=== PATIENT | female | born 1970 | race Caucasian/White ===

== ENCOUNTER 2016-10-06 06:40 | Day surgery (SDC) | payer BC ==
[2016-10-05 15:56] LABS: CHLORIDE,CL 110 mmol/L (98-110); SODIUM,NA 143 mmol/L (136-146)
[~2016-10-06 06:40] MED LIST: Lactated Ringers 1,000 ML IV SCH; Sodium Chloride 0.9% 10 ML Syringe FLUSH PRN; Sodium Chloride 0.9% 2.5 ML Syringe FLUSH PRN; cefOXitin 2 GM in Premix Bag 1 BAG IV ONE
[2016-10-06] MEDS ORDERED: fentaNYL 100 MCG/2 ML SDV ONE ×2 (07:26→08:43)
[2016-10-06] MEDS ORDERED: Midazolam 1 MG/ML 2 ML SDV ONE (07:26)
[2016-10-06] MEDS ORDERED: Propofol 200 MG/20 ML SDV ONE (07:26)
[2016-10-06] MEDS ORDERED: Rocuronium 10 MG/ML 10 ML Syringe ONE (07:26)
[2016-10-06] MEDS ORDERED: Lidocaine 2% 5 ML SDV ONE (07:26)
[2016-10-06] MEDS ORDERED: Octyl 2-Cyanoacrylate 1 Tube ONE (07:32)
[2016-10-06] MEDS ORDERED: Fluorescein 5 ML Vial ONE (07:37)
--- NOTE | 2016-10-06 07:43 | PCM.PREANE ---
Preanesthetic Assessment - Anesthesia/Transfusion/Family Hx Anesthesia History: Prior Anesthesia Without Reaction Family History of Anesthesia Reaction: No Transfusion History: No Prior Transfusion(s) - Review of Systems General: No Symptoms Pulmonary: No Symptoms Cardiovascular: No Symptoms Gastrointestinal: No symptoms Neurological: No Symptoms Other: Reports: None - Physical Assessment NPO Status Date: 10/05/16 O2 Sat by Pulse Oximetry: 99 Respiratory Rate: 16 Vital Signs: Last Vital Signs Temp 36.3 C 10/06/16 06:49 Pulse 65 10/06/16 06:49 Resp 16 10/06/16 06:49 BP 112/55 L 10/06/16 06:49 Pulse Ox 99 10/06/16 06:49 Height: 1.65 m Weight: 52.163 kg ASA Class: 2 Mental Status: Alert & Oriented x3 Airway Class: Mallampati = 2 Dentition: Reports: Normal Dentition ROM/Head Extension: Full Lungs: Clear to auscultation Cardiovascular: Regular Rate - Lab Values: Laboratory Last Values WBC 7.29 K/uL (4.0-11.0) 10/05/16 15: RBC 4.20 M/uL (4.30-5.90) L 10/05/16 15: Hgb 13.3 g/dL (12.0-16.0) 10/05/16 15: Hct 39.5 % (36.0-46.0) 10/05/16 15:29 MCV 94.0 fL (80.0-98.0) 10/05/16 15: MCH 31.7 pg (27.0-32.0) 10/05/16 15: MCHC 33.7 g/dL (31.0-37.0) 10/05/16 15:29 RDW Std Deviation 46.1 fl (28.0-62.0) 10/05/16 15: RDW Coeff of Dominic 13 % (11.0-15.0) 10/05/16 15: Plt Count 172 K/uL (150-400) 10/05/16 15:29 MPV 11.40 fL (7.40-12.00) 10/05/16 15:29 Nucleated RBC % 0.0 /100WBC 10/05/16 15:29 Nucleated RBCs # 0 K/uL 10/05/16 15:29 Sodium 143 mmol/L (136-146) 10/05/16 15:29 Potassium 4.1 mmol/L (3.5-5.1) 10/05/16 15:29 Chloride 110 mmol/L (98-110) 10/05/16 15:29 Carbon Dioxide 26 mmol/L (21-31) 10/05/16 15:29 BUN 19 mg/dL (6.0-23.0) 10/05/16 15:29 Creatinine 0.8 mg/dL (0.6-1.5) 10/05/16 15:29 Est Cr Clr Drug Dosing 72.36 mL/min 10/05/16 15:29 Estimated GFR (MDRD) > 60.0 ml/min 10/05/16 15:29 Glucose 95 mg/dL (60-110) 10/05/16 15: Calcium 8.7 mg/dL (8.8-10.8) L 10/05/16 15:29 HCG, Qual NEGATIVE (NEG) 10/05/16 15: Blood Type A POSITIVE 10/05/16 15:29 Antibody Screen NEGATIVE 10/05/16 15:29 - Allergies Allergies/Adverse Reactions: Allergies Allergy/AdvReac Type Severity Reaction Status Date / Time animal dander Allergy watery Verified 10/04/16 09:22 eyes/itching oxycodone Allergy Nausea Verified 10/04/16 09:22 - Anesthesia Plan Pre-Op Medication Ordered: None - Acknowledgements Anesthesia Type Planned: General Anesthesia Pt an Appropriate Candidate for the Planned Anesthesia: Yes Alternatives and Risks of Anesthesia Discussed w Pt/Guardian: Yes Pt/Guardian Understands and Agrees with Anesthesia Plan: Yes Additional Comments: HCG negative PreAnesthesia Questionnaire HEENT History: Reports: Allergic rhinitis, Other (see below) Other HEENT History: wears glasses Genitourinary History: Reports: None [employer] History: Reports: Spontaneous Psychiatric History: Reports: Anxiety - Past Surgical History Head Surgeries/Procedures: Reports: None HEENT Surgical History: Reports: Tonsillectomy Female Surgical History: Reports: Tubal ligation Musculoskeletal Surgical History: Reports: Other (see below) Other Musculoskeletal Surgeries/Procedures:: foot surgery to remove spur from big toe and to correct her flat feet - SUBSTANCE USE Smoking Status *Q: Former Smoker Recreational Drug Use History: No - HOME MEDS Home Medications: Home Meds Cetirizine [ZyrTEC] 10 mg PO ASDIRECTED PRN 10/04/16 [History] Cyclobenzaprine HCl 10 mg PO ASDIRECTED PRN 10/04/16 [History] diphenhydrAMINE [Benadryl] 25 mg PO BEDTIME PRN 10/04/16 [History] - CURRENT (IN HOUSE) MEDS Current Meds: Current Medications Lactated Ringer's (Ringers, Lactated) 1,000 mls @ 125 mls/hr IV ASDIRECTED NOÉ Last Admin: 10/06/16 06:52 Dose: 125 mls/hr Sodium Chloride (Saline Flush) 10 ml FLUSH ASDIRECTED PRN PRN Reason: Keep Vein Open Sodium Chloride (Saline Flush) 2.5 ml FLUSH ASDIRECTED PRN PRN Reason: Keep Vein Open Discontinued Medications Fentanyl (Sublimaze) Confirm Administered Dose 100 mcg .ROUTE .STK-MED ONE Stop: 10/06/16 07:27 Cefoxitin Sodium 2 gm/ Premix 50 mls @ 100 mls/hr IV ONETIME ONE Stop: 10/05/16 10:33 Lidocaine (Xylocaine-Mpf 2%) Confirm Administered Dose 5 ml .ROUTE .STK-MED ONE Stop: 10/06/16 07:27 Midazolam HCl (Versed 1 Mg/Ml) Confirm Administered Dose 2 mg .ROUTE .STK-MED ONE Stop: 10/06/16 07:27 Octyl Cyanoacrylate (Dermabond Advance) Confirm Administered Dose 1 applic .ROUTE .STK-MED ONE Stop: 10/06/16 07:33 Propofol (Diprivan 20 Ml) Confirm Administered Dose 200 mg .ROUTE .STK-MED ONE Stop: 10/06/16 07:27 Rocuronium [place] (Zemuron) Confirm Administered Dose 100 mg .ROUTE .STK-MED ONE Stop: 10/06/16 07:27 Preanesthetic Assessment - ANESTHESIA/TRANSFUSION/FAMILY HX Family History of Anesthesia Reaction: No - PHYSICAL ASSESSMENT O2 Sat by Pulse Oximetry: 99 RR: 16 Vital Signs: Last Vital Signs Temp 36.3 C 10/06/16 06:49 Pulse 65 10/06/16 06:49 Resp 16 10/06/16 06:49 BP 112/55 L 10/06/16 06:49 Pulse Ox 99 10/06/16 06:49 Height: 1.65 m Weight: 52.163 kg - LAB Values: Laboratory Last Values WBC 7.29 K/uL (4.0-11.0) 10/05/16 15: RBC 4.20 M/uL (4.30-5.90) L 10/05/16 15: Hgb 13.3 g/dL (12.0-16.0) 10/05/16 15: Hct 39.5 % (36.0-46.0) 10/05/16 15: MCV 94.0 fL (80.0-98.0) 10/05/16: MCH 31.7 pg (27.0-32.0) 10/05/16: MCHC 33.7 g/dL (31.0-37.0) 10/05/16: RDW Std Deviation 46.1 fl (28.0-62.0) 10/05/16: RDW Coeff of Dominic 13 % (11.0-15.0) 10/05/16 15: Plt Count 172 K/uL (150-400) 10/05/16 15: MPV 11.40 fL (7.40-12.00) 10/05/16 15: Nucleated RBC % 0.0 /100WBC 10/05/16 15: Nucleated RBCs # 0 K/uL 10/05/16 15: Sodium 143 mmol/L (136-146) 10/05/16 15: Potassium 4.1 mmol/L (3.5-5.1) 10/05/16 15: Chloride 110 mmol/L (98-110) 10/05/16 15: Carbon Dioxide 26 mmol/L (21-31) 10/05/16 15: BUN 19 mg/dL (6.0-23.0) 10/05/16 15: Creatinine 0.8 mg/dL (0.6-1.5) 10/05/16 15: Est Cr Clr Drug Dosing 72.36 mL/min 10/05/16 15:29 Estimated GFR (MDRD) > 60.0 ml/min 10/05/16 15: Glucose 95 mg/dL (60-110) 10/05/16 15:29 Calcium 8.7 mg/dL (8.8-10.8) L 10/05/16 15:29 HCG, Qual NEGATIVE (NEG) 10/05/16 15:29 Blood Type A POSITIVE 10/05/16 15:29 Antibody Screen NEGATIVE 10/05/16 15:29 - ALLERGIES Allergies/Adverse Reactions: Allergies Allergy/AdvReac Type Severity Reaction Status Date / Time animal dander Allergy watery Verified 10/04/16 09:22 eyes/itching oxycodone Allergy Nausea Verified 10/04/16 09:22
[2016-10-06] MEDS ORDERED: HYDROmorphone 2 MG/ML Syringe ONE (08:23)
[2016-10-06] MEDS ORDERED: fentaNYL 100 MCG/2 ML SDV IVPUSH PRN (08:38)
[2016-10-06] MEDS ORDERED: Belladonna Alkaloids/Opium 16.2-30 MG Supp RECTAL PRN (08:40)
[2016-10-06] MEDS ORDERED: Neostigmine Methylsulfate 1 MG/ML 5 ML Syringe ONE (08:45)
[2016-10-06] MEDS ORDERED: Ketorolac 30 MG/ML SDV ONE (08:45)
[2016-10-06] MEDS ORDERED: Ondansetron 4 MG/2 ML SDV ONE (08:45)
[2016-10-06] MEDS ORDERED: Furosemide 40 MG/4 ML VIAL ONE (09:01)
[2016-10-06] MEDS ORDERED: Morphine 2 MG/ML Syringe IVPUSH PRN (09:15)
[2016-10-06] MEDS ORDERED: Ketorolac 30 MG/ML SDV IVPUSH ONE (09:15)
[2016-10-06] MEDS ORDERED: Ondansetron 4 MG/2 ML SDV IVPUSH PRN (09:15)
[2016-10-06] MEDS ORDERED: Acetaminophen/oxyCODONE 325-5 MG Tab PO PRN (09:15)
--- NOTE | 2016-10-06 09:23 | PCM.OPNOTE ---
- General Post-Op/Procedure Note Date of Surgery/Procedure: 10/06/16 Operative Procedure(s): TLH BS Cystoscopy Post-Op Diagnosis: Same Anesthesia Technique: General ET tube Primary Surgeon: [employer] Tutor: Puja Edwards Complications: None Condition: Good
[2016-10-06] MEDS ORDERED: Meperidine PF 25 MG/ML Syringe IVPUSH ONE (10:18)
--- NOTE | 2016-10-06 10:22 | PCM.POSTAN ---
POST ANESTHESIA ASSESSMENT - MENTAL STATUS Mental Status: alert, oriented - RESPIRATORY Respiratory Status: respiratory rate WNL, airway patent - CARDIOVASCULAR CV Status: pulse rate WNL, blood pressure stable - GASTROINTESTINAL GI Status: no symptoms - POST OP HYDRATION Hydration Status: adequate & stable
[2016-10-06] MEDS ORDERED: Meperidine PF 50 MG/ML Syringe ONE (10:24)
[2016-10-06] MEDS ORDERED: Meperidine PF 50 MG/ML Syringe IVPUSH ONE (10:30)
[2016-10-06] MEDS ORDERED: Promethazine 25 MG/ML SDV IM ONE (15:12)
[2016-10-06] MEDS ORDERED: Scopolamine 1.5 MG Transdermal Patch TOP ONE (15:16)
[2016-10-06] MEDS: Ketorolac 30 MG/ML SDV IVPUSH PRN (15:17)
--- NOTE | 2016-10-06 15:58 | PCM48HPAN ---
Post Anesthesia Note - EVALUATION WITHIN 48HRS OF ANESTHETIC Vital Signs in Normal Range: Yes Patient Participated in Evaluation: Yes Respiratory Function Stable: Yes Airway Patent: Yes Cardiovascular Function Stable: Yes Hydration Status Stable: Yes Pain Control Satisfactory: Yes Nausea and Vomiting Control Satisfactory: No (scop patch and phenergan ordered) Mental Status Recovered: Yes
[2016-10-07] MEDS: Ketorolac 30 MG/ML SDV IVPUSH PRN ×2 (00:25→07:51)
[2016-10-07 05:34] LABS: CHLORIDE,CL 112 mmol/L (98-110); SODIUM,NA 140 mmol/L (136-146)
[2016-10-07 08:17] VITALS: BP 121/63
--- NOTE | 2016-10-07 09:08 | PCM.SURGPN ---
- General Info Date of Service: 10/07/16 POD#: 1 Functional Status: Reports: pain controlled - Review of Systems General: Reports: No Symptoms HEENT: Reports: no symptoms Pulmonary: Reports: no symptoms Cardiovascular: Reports: No Symptoms Gastrointestinal: Reports: No symptoms Genitourinary: Reports: no symptoms Musculoskeletal: Reports: no symptoms Skin: Reports: no symptoms Neurological: Reports: No Symptoms Psychiatric: Reports: no symptoms - Patient Data Vitals - most recent: Last Vital Signs Temp 37.0 C 10/07/16 07:20 Pulse 84 10/07/16 07:20 Resp 16 10/07/16 07:20 BP 121/63 10/07/16 07:20 Pulse Ox 95 10/07/16 04:00 Weight - most recent: 52.163 kg I&O - last 24 hours: Intake & Output 10/06/16 10/07/16 10/07/16 22:59 06:59 14:59 Output Total 300 Balance -300 Lab Results last 24 hrs: Laboratory Results - last 24 hr 10/07/16 10/07/16 Range/Units 05:06 05:06 WBC 10.14 (4.0-11.0) K/uL RBC 3.72 L (4.30-5.90) M/uL Hgb 11.7 L (12.0-16.0) g/dL Hct 35.0 L (36.0-46.0) % MCV 94.1 (80.0-98.0) fL MCH 31.5 (27.0-32.0) pg MCHC 33.4 (31.0-37.0) g/dL RDW Std Deviation 46.2 (28.0-62.0) fl RDW Coeff of Dominic 13 (11.0-15.0) % Plt Count 146 L (150-400) K/uL MPV 11.40 (7.40-12.00) fL Neut % (Auto) 63.0 (48.0-80.0) % Lymph % (Auto) 26.1 (16.0-40.0) % [place] % (Auto) 10.0 (0.0-15.0) % Eos % (Auto) 0.8 (0.0-7.0) % Baso % (Auto) 0.1 (0.0-1.5) % Neut # (Auto) 6.4 H (1.4-5.7) K/uL Lymph # (Auto) 2.7 H (0.6-2.4) K/uL [place] # (Auto) 1.0 H (0.0-0.8) K/uL Eos # (Auto) 0.1 (0.0-0.7) K/uL Baso # (Auto) 0.0 (0.0-0.1) K/uL Nucleated RBC % 0.0 /100WBC Nucleated RBCs # 0 K/uL Sodium 140 (136-146) mmol/L Potassium 3.9 (3.5-5.1) mmol/L Chloride 112 H (98-110) mmol/L Carbon Dioxide 22 (21-31) mmol/L BUN 11 (6.0-23.0) mg/dL Creatinine 0.6 (0.6-1.5) mg/dL Est Cr Clr Drug Dosing 96.48 mL/min Estimated GFR (MDRD) > 60.0 ml/min Glucose 92 (60-110) mg/dL Calcium 8.3 L (8.8-10.8) mg/dL Med Orders - Current: Current Medications Lactated Ringer's (Ringers, Lactated) 1,000 mls @ 125 mls/hr IV ASDIRECTED [facility] Last Admin: 10/06/16 06:52 Dose: 125 mls/hr Ketorolac Tromethamine (Toradol) 30 mg IVPUSH Q6H PRN PRN Reason: Pain (severe 7-10) Stop: 10/11/16 09:15 Last Admin: 10/07/16 07:51 Dose: 30 mg Morphine Sulfate (Morphine) 2 mg IVPUSH Q2H PRN PRN Reason: Pain (severe 7-10) Ondansetron HCl (Zofran) 4 mg IVPUSH Q6H PRN PRN Reason: Nausea/Vomiting Last Admin: 10/06/16 11:43 Dose: 4 mg Oxycodone/Acetaminophen (Percocet 325-5 Mg) 2 tab PO Q4H PRN PRN Reason: Pain (moderate 4-6) Sodium Chloride (Saline Flush) 10 ml FLUSH ASDIRECTED PRN PRN Reason: Keep Vein Open Sodium Chloride (Saline Flush) 2.5 ml FLUSH ASDIRECTED PRN PRN Reason: Keep Vein Open Discontinued Medications Belladonna Alkaloids/Opium (B & O Supprettes No. 15a) 1 supp RECTAL .ONCE PRN PRN Reason: Pain Stop: 10/06/16 11:00 Fentanyl (Sublimaze) Confirm Administered Dose 100 mcg .ROUTE .STK-MED ONE Stop: 10/06/16 07:27 Fentanyl (Sublimaze) 50 - 100 mcg IVPUSH Q5M PRN PRN Reason: Pain Stop: 10/06/16 11:00 Fentanyl (Sublimaze) Confirm Administered Dose 100 mcg .ROUTE .STK-MED ONE Stop: 10/06/16 08:44 Fluorescein Sodium (Ak-Fluor) Confirm Administered Dose 5 ml .ROUTE .STK-MED ONE Stop: 10/06/16 07:38 Furosemide (Lasix) Confirm Administered Dose 40 mg .ROUTE .STK-MED ONE Stop: 10/06/16 09:02 Glycopyrrolate () Confirm Administered Dose 1 mg .ROUTE .STK-MED ONE Stop: 10/06/16 08:46 Hydromorphone HCl (Dilaudid) Confirm Administered Dose 2 mg .ROUTE .STK-MED ONE Stop: 10/06/16 08:24 Cefoxitin Sodium 2 gm/ Premix 50 mls @ 100 mls/hr IV ONETIME ONE Stop: 10/05/16 10:33 Ketorolac Tromethamine (Toradol) Confirm Administered Dose 30 mg .ROUTE .STK- MED ONE Stop: 10/06/16 08:46 Ketorolac Tromethamine (Toradol) 30 mg IVPUSH ONETIME ONE Stop: 10/06/16 09:16 Lidocaine (Xylocaine-Mpf 2%) Confirm Administered Dose 5 ml .ROUTE .STK-MED ONE Stop: 10/06/16 07:27 Meperidine HCl (Demerol) 12.5 mg IVPUSH ONETIME ONE Stop: 10/06/16 10:19 Last Admin: 10/06/16 10:25 Dose: 12.5 mg Meperidine HCl (Demerol) 12.5 mg IVPUSH ONETIME ONE Stop: 10/06/16 10:31 Meperidine HCl (Demerol) Confirm Administered Dose 50 mg .ROUTE .STK-MED ONE Stop: 10/06/16 10:25 Midazolam HCl (Versed 1 Mg/Ml) Confirm Administered Dose 2 mg .ROUTE .STK-MED ONE Stop: 10/06/16 07:27 Neostigmine Methylsulfate (Neostigmine) Confirm Administered Dose 5 mg .ROUTE .STK-MED ONE Stop: 10/06/16 08:46 Octyl Cyanoacrylate (Dermabond Advance) Confirm Administered Dose 1 applic .ROUTE .STK-MED ONE Stop: 10/06/16 07:33 Ondansetron HCl (Zofran) Confirm Administered Dose 4 mg .ROUTE .STK-MED ONE Stop: 10/06/16 08:46 Promethazine HCl (Phenergan) 25 mg IM ONETIME ONE Stop: 10/06/16 15:13 Propofol (Diprivan 20 Ml) Confirm Administered Dose 200 mg .ROUTE .STK-MED ONE Stop: 10/06/16 07:27 Rocuronium [place] (Zemuron) Confirm Administered Dose 100 mg .ROUTE .STK-MED ONE Stop: 10/06/16 07:27 Scopolamine (Transderm-Scop) 1.5 mg TOP ONETIME ONE Stop: 10/06/16 15:17 Last Admin: 10/06/16 15:24 Dose: 1.5 mg - Exam Wound/Incisions: healing well General: alert, oriented HEENT: Pupils equal Neck: supple Lungs: Clear to auscultation, Normal respiratory effort Cardiovascular: Regular Rate, Regular Rhythm Abdomen: bowel sounds present, soft, no tenderness, no distension Extremities: no edema Skin: warm, dry, intact Neurological: no new focal deficit Psy/Mental Status: alert, normal affect, normal mood - Problem List Review Problem List Initiated/Reviewed/Updated: Yes - My Orders Last 24 Hours: Active Orders 24 hr Category Date Time Status Patient Status [ADT] Routine ADT 10/06/16 09:15 Active Notify Provider Vital Signs [RC] ASDIRECTED Care 10/06/16 09:15 Active RT Incentive Spirometry [RC] Q2HWA Care 10/06/16 09:15 Active Up ad Cindy [RC] PER UNIT ROUTINE Care 10/06/16 09:15 Active Vital Signs [RC] PER UNIT ROUTINE Care 10/06/16 08:38 Active Regular Diet [DIET] Diet 10/06/16 Lunch Active Acetaminophen/oxyCODONE [Percocet 325-5 MG] Med 10/06/16 09:15 Active 2 tab PO Q4H PRN Ketorolac [Toradol] Med 10/06/16 09:15 Active 30 mg IVPUSH Q6H PRN Morphine Med 10/06/16 09:15 Active 2 mg IVPUSH Q2H PRN Ondansetron [Zofran] Med 10/06/16 09:15 Active 4 mg IVPUSH Q6H PRN Peripheral IV Discontinue [OM.PC] Routine Oth 10/06/16 09:15 Ordered Sequential Compression Device [OM.PC] Per Unit Routine Oth 10/06/16 09:15 Ordered Resuscitation Status Routine Resus Stat 10/06/16 09:15 Ordered Medication Orders Lactated Ringer's (Ringers, Lactated) 1,000 mls @ 125 mls/hr IV ASDIRECTED NOÉ Last Admin: 10/06/16 06:52 Dose: 125 mls/hr Ketorolac Tromethamine (Toradol) 30 mg IVPUSH Q6H PRN PRN Reason: Pain (severe 7-10) Stop: 10/11/16 09:15 Last Admin: 10/07/16 07:51 Dose: 30 mg Admin: 10/07/16 00:25 Dose: 30 mg Admin: 10/06/16 15:17 Dose: 30 mg Morphine Sulfate (Morphine) 2 mg IVPUSH Q2H PRN PRN Reason: Pain (severe 7-10) Ondansetron HCl (Zofran) 4 mg IVPUSH Q6H PRN PRN Reason: Nausea/Vomiting Last Admin: 10/06/16 11:43 Dose: 4 mg Oxycodone/Acetaminophen (Percocet 325-5 Mg) 2 tab PO Q4H PRN PRN Reason: Pain (moderate 4-6) Sodium Chloride (Saline Flush) 10 ml FLUSH ASDIRECTED PRN PRN Reason: Keep Vein Open Sodium Chloride (Saline Flush) 2.5 ml FLUSH ASDIRECTED PRN PRN Reason: Keep Vein Open - Assessment Assessment (Free Text/Narrative):: Status post laparoscopic hysterectomy postoperative day #1 patient is doing well no vaginal bleeding she is on regular diet tolerated very well - Plan Plan (Free Text/Narrative):: Post hysterectomy instruction is given to the patient prescription for Motrin 800 mg by mouth every 4 hours and when necessary for the pain the patient have a followup appointment in one week
--- NOTE | 2016-10-10 07:56 | OR ---
SURGEON: Jordan Victoria MD DATE OF PROCEDURE: 10/06/16 PREOPERATIVE DIAGNOSES: Menometrorrhagia and pelvic pain. POSTOPERATIVE DIAGNOSES: Menometrorrhagia and pelvic pain. OPERATION PERFORMED: Total examination under anesthesia, total laparoscopic hysterectomy, laparoscopic bilateral salpingectomy, preserving both ovaries. ELECTRONIC WARFARE OPERATOR: CHAITANYA Corrigan ANESTHESIA: General endotracheal intubation, Lurdes Thomas. ESTIMATED BLOOD LOSS: Less than 50 mL. COMPLICATION: Finding uterus about 11 to 12-week size. Both ovaries are essentially normal. INDICATION: [place] refer to the admit note. PROCEDURE IN DETAIL: The patient was brought to the OR, properly identified, and after adequate level of general anesthesia, the patient was placed in lithotomy position with an access to the abdomen and the vagina. The patient was prepped and draped in sterile fashion as usual. Booker catheter was placed in the bladder for drainage and the VCare manipulator was placed in the uterus for manipulation. The operation shifted abdominally. Stab wound done beneath the umbilicus. The Veress needle was placed in the peritoneal cavity and that cavity insufflated to 6 L carbon dioxide. The skin incision large to accommodate 5-mm trocar and the center trocar infraumbilically inserted without any problem. A 10-12 trocar placed in the left iliac fossa under direct vision and the same thing 5 mm trocar in the right iliac fossa. The operation started by placing the patient in steep Trendelenburg. Inspection of the pelvis revealed the above mentioned dictated finding. The landmark of the pelvis was identified and using the QAMAR Harmonic scalpel, the operation was started by coagulating and transecting the superior pedicle, preserving both ovary and the tubes are included with the specimen on both sides. Then, the round ligament coagulated and transected in the same manner on both sides and then the anterior leaf of the broad ligament dissected downward medially pushing the bladder completely away from the lower uterine vessel. The uterine vessel was skeletonized at the level of the VCare manipulator and coagulated and transected with the QAMAR Harmonic scalpel. The uterus was now only attached to the vagina and then circular incision using the QAMAR Harmonic scalpel around the tip of the VCare manipulator and detaching the cervix from its attachment to the vagina. The uterus and both tubes removed vaginally. Pneumoperitoneum re-established by placing vaginal pack in the vagina. Thorough irrigation of the pelvis was done. There was no oozing, no bleeding from all the pedicle. Both ovaries were essentially normal and per the patient request, both ovaries preserved. Next step, we proceeded to close the vaginal cuff laparoscopically using 2-0 PDS interrupted suture. While we were doing that, we asked the anesthesiologist to give the patient fluorescein and after closing the abdomen and the vagina and deflating the abdomen, the Booker catheter was removed. Cystoscopy was performed. The bladder was intact. Both ureteric orifices were seen with the dye coming from both of them. Thus, the patency of both ureters verified. Satisfied with these findings, the procedure was ended. Instrument and hardware were retrieved from the abdomen and the vagina and the multiple laparoscopic incisions were closed in layers. Instrument and sponge counts were correct. The patient tolerated the procedure well, went to recovery room in stable general condition. MYRIAM HOU /[id number]
== END 2016-10-07 09:40 | disposition home or self-care (01) ==
LOC: MW.SDS 06:40 → MW.OB 09:15 → MW.SDS 10-07 09:40
PROVIDERS: ATTEND Obstetrics & Gynecology
PROC: 0UT94ZZ Resection of Uterus, Percutaneous Endoscopic Approach (ICD-10-PCS; principal; 2016-10-06)
PROC: 0UTC4ZZ Resection of Cervix, Percutaneous Endoscopic Approach (ICD-10-PCS; 2016-10-06)
PROC: 0UT74ZZ Resection of Bilateral Fallopian Tubes, Percutaneous Endoscopic Approach (ICD-10-PCS; 2016-10-06)
DX: C54.1 Malignant neoplasm of endometrium (principal); N80.0 Endometriosis of uterus; D25.2 Subserosal leiomyoma of uterus; N88.8 Other specified noninflammatory disorders of cervix uteri; F41.9 Anxiety disorder, unspecified; Z79.899 Other long term (current) drug therapy; Z88.5 Allergy status to narcotic agent; Z91.048 Other nonmedicinal substance allergy status
CPT/HCPCS: 36415; 58571; 80048; 84703; 85025; 85027; 86850; 86900; 86901; A9270; J1170; J1885; J1940; J2175; J2250; J2405; J3010; J7120; 00944; 88309; J2704

== ENCOUNTER 2016-10-10 07:25 | Emergency (ER) | payer BC ==
[2016-10-10] MEDS ORDERED: Sodium Chloride 0.9% 1,000 ML IV ONE (07:37)
[2016-10-10] MEDS ORDERED: Ondansetron 4 MG/2 ML SDV IVPUSH ONE (07:37)
--- NOTE | 2016-10-10 07:49 | EDM.PDOC ---
ED HPI GENERAL MEDICAL PROBLEM - General Chief Complaint: Abdominal Pain Stated Complaint: PAIN AND COMPLICATIONS FROM RECENT HYSTERECTOMY Time Seen by Provider: 10/10/16 07:33 - History of Present Illness INITIAL COMMENTS - FREE TEXT/NARRATIVE: HISTORY AND PHYSICAL: History of present illness: Patient 46-year-old female status post vaginal hysterectomy last Monday who presents with concern of nausea dizziness and abdominal pain. She denies fever chills she was using Motrin 800 mg but discontinued due to her nausea. Review of systems: As per history of present illness and below otherwise all systems reviewed and negative. Past medical history: As per history of present illness and as reviewed below otherwise noncontributory. Surgical history: As per history of present illness and as reviewed below otherwise noncontributory. Social history: No reported history of drug or alcohol abuse. Family history: As per history of present illness and as reviewed below otherwise noncontributory. Physical exam: HEENT: Atraumatic, normocephalic, pupils reactive, negative for conjunctival pallor or scleral icterus, mucous membranes dry, throat clear, neck supple, nontender, trachea midline. Lungs: Clear to auscultation, breath sounds equal bilaterally, chest nontender. Heart: S1S2, regular, negative for clicks, rubs, or JVD. Abdomen: Soft, nondistended, mild lower abdominal tenderness no rebound no guarding. Negative for masses or hepatosplenomegaly. Negative for costovertebral tenderness. Pelvis: Stable nontender. Genitourinary: Deferred. Rectal: Deferred. Extremities: Atraumatic, negative for cords or calf pain. Neurovascular unremarkable. Neuro: Awake, alert, oriented. Cranial nerves II through XII unremarkable. Cerebellum unremarkable. Motor and sensory unremarkable throughout. Exam nonfocal. Diagnostics: CBC CMP lipase UA CT abdomen and pelvis Therapeutics: Normal saline 1 L bolus Zofran 4 mg IV Impression: #1 postoperative pain #2 observation status post vaginal hysterectomy #3 dehydration Definitive disposition and diagnosis as appropriate pending reevaluation and review of above. abdominal Pain Score (Numeric/FACES): 7 - Related Data Allergies Allergy/AdvReac Type Severity Reaction Status Date / Time animal dander Allergy watery Verified 10/10/16 07:37 eyes/itching oxycodone Allergy Nausea Verified 10/10/16 07:37 Home Meds: Home Meds Cetirizine [ZyrTEC] 10 mg PO ASDIRECTED PRN 10/04/16 [History] Cyclobenzaprine HCl 10 mg PO ASDIRECTED PRN 10/04/16 [History] diphenhydrAMINE [Benadryl] 25 mg PO BEDTIME PRN 10/04/16 [History] Past Medical History HEENT History: Reports: Allergic rhinitis, Other (see below) Other HEENT History: wears glasses Genitourinary History: Reports: None HOMOEOPATH History: Reports: Spontaneous Psychiatric History: Reports: Anxiety - Past Surgical History Head Surgeries/Procedures: Reports: None HEENT Surgical History: Reports: Tonsillectomy Female Surgical History: Reports: Tubal ligation Musculoskeletal Surgical History: Reports: Other (see below) Other Musculoskeletal Surgeries/Procedures:: foot surgery to remove spur from big toe and to correct her flat feet Social & Family History - Tobacco Use Smoking Status *Q: Former Smoker Used Tobacco, but Quit: Yes Month Tobacco Last Used: quit smoking 2004 - Recreational Drug Use Recreational Drug Use: No ED ROS GENERAL - Review of Systems Review Of Systems: ROS reveals no pertinent complaints other than HPI. ED EXAM, GENERAL - Physical Exam Exam: See Below (See dictated) Course - Vital Signs Last Recorded V/S: Last Vital Signs Temp 36.9 C 10/10/16 07:34 Pulse 89 10/10/16 07:34 Resp 16 10/10/16 07:34 BP 111/76 10/10/16 07:34 Pulse Ox 98 10/10/16 07:34 - Orders/Labs/Meds Labs: Laboratory Tests 10/10/16 10/10/16 10/10/16 Range/Units 07:44 07:44 07:44 WBC 12.75 H (4.0-11.0) K/uL RBC 4.38 (4.30-5.90) M/uL Hgb 13.6 (12.0-16.0) g/dL Hct 40.1 (36.0-46.0) % MCV 91.6 (80.0-98.0) fL MCH 31.1 (27.0-32.0) pg MCHC 33.9 (31.0-37.0) g/dL RDW Std Deviation 43.2 (28.0-62.0) fl RDW Coeff of Dominic 13 (11.0-15.0) % Plt Count 161 (150-400) K/uL MPV 11.80 (7.40-12.00) fL Neut % (Auto) 74.9 (48.0-80.0) % Lymph % (Auto) 15.7 L (16.0-40.0) % [place] % (Auto) 8.0 (0.0-15.0) % Eos % (Auto) 1.3 (0.0-7.0) % Baso % (Auto) 0.1 (0.0-1.5) % Neut # (Auto) 9.6 H (1.4-5.7) K/uL Lymph # (Auto) 2.0 (0.6-2.4) K/uL [place] # (Auto) 1.0 H (0.0-0.8) K/uL Eos # (Auto) 0.2 (0.0-0.7) K/uL Baso # (Auto) 0.0 (0.0-0.1) K/uL Nucleated RBC % 0.0 /100WBC Nucleated RBCs # 0 K/uL INR 1.05 (0.86-1.11) Sodium 140 (136-146) mmol/L Potassium 3.6 (3.5-5.1) mmol/L Chloride 110 (98-110) mmol/L Carbon Dioxide 17 L (21-31) mmol/L BUN 9 (6.0-23.0) mg/dL Creatinine 0.7 (0.6-1.5) mg/dL Est Cr Clr Drug Dosing 82.69 mL/min Estimated GFR (MDRD) > 60.0 ml/min Glucose 111 H (60-110) mg/dL Calcium 9.0 (8.8-10.8) mg/dL Total Bilirubin 0.8 (0.1-1.5) mg/dL AST 14 (5-40) IU/L ALT 14 (8-54) IU/L Alkaline Phosphatase 41 (40-150) Total Protein 7.2 (6.0-8.0) g/dL Albumin 4.0 (3.5-5.0) g/dL Globulin 3.2 (2.0-3.5) g/dL Albumin/Globulin Ratio 1.3 (1.3-2.8) Lipase 19 (7-80) U/L Urine Color Urine Appearance Urine pH (5.0-8.0) Ur Specific [place] (1.001-1.035) Urine Protein (NEGATIVE) mg/dL Urine Glucose (UA) (NEGATIVE) mg/dL Urine Ketones (NEGATIVE) mg/dL Urine Occult Blood (NEGATIVE) Urine Nitrite (NEGATIVE) Urine Bilirubin (NEGATIVE) Urine Urobilinogen (<2.0) EU/dL Ur Leukocyte Esterase (NEGATIVE) Urine RBC (0-2/HPF) Urine WBC (0-5/HPF) Ur Epithelial Cells (NONE-FEW) Urine Bacteria (NEGATIVE) 10/10/16 Range/Units 07:55 WBC (4.0-11.0) K/uL RBC (4.30-5.90) M/uL Hgb (12.0-16.0) g/dL Hct (36.0-46.0) % MCV (80.0-98.0) fL MCH (27.0-32.0) pg MCHC (31.0-37.0) g/dL RDW Std Deviation (28.0-62.0) fl RDW Coeff of Dominic (11.0-15.0) % Plt Count (150-400) K/uL MPV (7.40-12.00) fL Neut % (Auto) (48.0-80.0) % Lymph % (Auto) (16.0-40.0) % [place] % (Auto) (0.0-15.0) % Eos % (Auto) (0.0-7.0) % Baso % (Auto) (0.0-1.5) % Neut # (Auto) (1.4-5.7) K/uL Lymph # (Auto) (0.6-2.4) K/uL [place] # (Auto) (0.0-0.8) K/uL Eos # (Auto) (0.0-0.7) K/uL Baso # (Auto) (0.0-0.1) K/uL Nucleated RBC % /100WBC Nucleated RBCs # K/uL INR (0.86-1.11) Sodium (136-146) mmol/L Potassium (3.5-5.1) mmol/L Chloride (98-110) mmol/L Carbon Dioxide (21-31) mmol/L BUN (6.0-23.0) mg/dL Creatinine (0.6-1.5) mg/dL Est Cr Clr Drug Dosing mL/min Estimated GFR (MDRD) ml/min Glucose (60-110) mg/dL Calcium (8.8-10.8) mg/dL Total Bilirubin (0.1-1.5) mg/dL AST (5-40) IU/L ALT (8-54) IU/L Alkaline Phosphatase (40-150) Total Protein (6.0-8.0) g/dL Albumin (3.5-5.0) g/dL Globulin (2.0-3.5) g/dL Albumin/Globulin Ratio (1.3-2.8) Lipase (7-80) U/L Urine Color YELLOW Urine Appearance HAZY Urine pH 5.5 (5.0-8.0) Ur Specific [place] 1.025 (1.001-1.035) Urine Protein NEGATIVE (NEGATIVE) mg/dL Urine Glucose (UA) NEGATIVE (NEGATIVE) mg/dL Urine Ketones 40 H (NEGATIVE) mg/dL Urine Occult Blood MODERATE (NEGATIVE) Urine Nitrite NEGATIVE (NEGATIVE) Urine Bilirubin NEGATIVE (NEGATIVE) Urine Urobilinogen 0.2 (<2.0) EU/dL Ur Leukocyte Esterase NEGATIVE (NEGATIVE) Urine RBC 3-5 (0-2/HPF) Urine WBC 5-7 (0-5/HPF) Ur Epithelial Cells FEW (NONE-FEW) Urine Bacteria FEW (NEGATIVE) Meds: Medications Discontinued Medications Generic Name Dose Route Start Last Admin Trade Name Freq PRN Reason Stop Dose Admin Sodium Chloride 1,000 mls @ 999 mls/hr 10/10/16 07:37 10/10/16 08:06 Normal Saline IV 10/10/16 08:37 999 mls/hr STAT ONE Administration Ketorolac Tromethamine 30 mg 10/10/16 08:02 10/10/16 08:14 Toradol IVPUSH 10/10/16 08:03 30 mg ONETIME ONE Administration Ondansetron HCl 4 mg 10/10/16 07:37 10/10/16 08:08 Zofran IVPUSH 10/10/16 07:38 4 mg ONETIME ONE Administration Departure - Departure Time of Disposition: 09:56 Disposition: Home, Self-Care 01 Condition: good Clinical Impression: Dehydration Forms: ED Department Discharge Additional Instructions: The following information is given to patients seen in the emergency department who are being discharged to home. This information is to outline your options for follow-up care. We provide all patients seen in our emergency department with a follow-up referral. The need for follow-up, as well as the timing and circumstances, are variable depending upon the specifics of your emergency department visit. If you don't have a primary care physician on staff, we will provide you with a referral. We always advise you to contact your personal physician following an emergency department visit to inform them of the circumstance of the visit and for follow-up with them and/or the need for any referrals to a consulting specialist. The emergency department will also refer you to a specialist when appropriate. This referral assures that you have the opportunity for followup care with a specialist. All of these measure are taken in an effort to provide you with optimal care, which includes your followup. Under all circumstances we always encourage you to contact your private physician who remains a resource for coordinating your care. When calling for followup care, please make the office aware that this follow-up is from your recent emergency room visit. If for any reason you are refused follow-up, please contact the [facility] emergency department at and asked to speak to the emergency department charge nurse. Zofran as prescribed push fluids followup primary medical doctor/MANAGER BUSINESS PROCESS as directed return as needed as discussed
[2016-10-10] MEDS ORDERED: Ketorolac 30 MG/ML SDV IVPUSH ONE (08:02)
[2016-10-10 08:14] LABS: CHLORIDE,CL 110 mmol/L (98-110); SODIUM,NA 140 mmol/L (136-146)
--- NOTE | 2016-10-10 09:04 | CT ---
CT of the abdomen and pelvis without contrast. HISTORY: Pain TECHNIQUE: Axial CT images were obtained of the abdomen and pelvis without contrast. Coronal and sag ittal reconstructions obtained. FINDINGS: The lung bases are clear, no pleural effusion. The liver, spleen, adrenal glands, and pancreas appear unremarkable for noncontrast examination. The gallbladder appears normal. There is no bulky retroperitoneal lymphadenopathy. No abdominal ascite s. There are no calcifications noted within the kidneys or along the courses of the ureters bilaterally . The large and small bowel are normal in caliber without evidence of obstruction. The appendix appear s normal. There is no bulky pelvic lymphadenopathy. No free fluid. There is a trace free air consist ent with recent surgery. The urinary bladder appears normal. Mild subcutaneous air is noted along th e left flank and inguinal region. Mild stranding is also noted within the pelvis, likely postoperati ve. The visualized osseous structures appear normal. IMPRESSION: 1. Mild subcutaneous and free air, likely secondary to recent surgery. 2. Otherwise no acute findings demonstrated within the abdomen or pelvis.
[2016-10-10 10:10] VITALS: BP 101/63
== END 2016-10-10 10:15 | disposition home or self-care (01) ==
LOC: MW.ED 07:25
DX: G89.18 Other acute postprocedural pain (principal); E86.0 Dehydration; F41.9 Anxiety disorder, unspecified; Z88.6 Allergy status to analgesic agent; Z79.899 Other long term (current) drug therapy; Z91.09 Other allergy status, other than to drugs and biological substances; Z98.890 Other specified postprocedural states; Z98.51 Tubal ligation status; Z90.710 Acquired absence of both cervix and uterus; Z87.891 Personal history of nicotine dependence
CPT/HCPCS: 36415; 74176; 80053; 81001; 83690; 85025; 85610; 96361; 96374; 96375; 99284; J1885; J2405; J7040

== ENCOUNTER 2016-10-27 07:40 | Day surgery (SDC) | payer BC ==
[2016-10-26 14:18] LABS: CHLORIDE,CL 105 mmol/L (98-110); SODIUM,NA 141 mmol/L (136-146)
[~2016-10-27 07:40] MED LIST changes: -Lactated Ringers 1,000 ML IV SCH; +Lidocaine 2% 5 ML SDV ONE; +Midazolam 1 MG/ML 2 ML SDV ONE; +Neostigmine Methylsulfate 1 MG/ML 5 ML Syringe ONE; +Ondansetron 4 MG/2 ML SDV ONE; +Propofol 200 MG/20 ML SDV ONE; +Rocuronium 10 MG/ML 10 ML Syringe ONE; +ceFAZolin 1 GM in Premix Bag 1 BAG IV ONE; -cefOXitin 2 GM in Premix Bag 1 BAG IV ONE; +fentaNYL 250 MCG/5 ML SDV ONE
[2016-10-27] MEDS: Lactated Ringers 1,000 ML IV SCH ×2 (07:51→08:14)
[2016-10-27] MEDS ORDERED: Scopolamine 1.5 MG Transdermal Patch TRDERM PRN (08:08)
[2016-10-27] MEDS ORDERED: Scopolamine 1.5 MG Transdermal Patch ONE (08:11)
--- NOTE | 2016-10-27 08:12 | PCM.PREANE ---
Preanesthetic Assessment - Anesthesia/Transfusion/Family Hx Anesthesia History: Prior Anesthesia Reaction Type of Anesthesia Reaction: Excessive Nausea/Vomiting (PONV x 4 days despite no oral narotics, one trip to ED, used zofran ODT and scop) Family History of Anesthesia Reaction: No Transfusion History: No Prior Transfusion(s) - Review of Systems General: No Symptoms Pulmonary: No Symptoms Cardiovascular: No Symptoms Gastrointestinal: No symptoms Neurological: No Symptoms Other: Reports: Anxiety - Physical Assessment NPO Status Date: 10/26/16 O2 Sat by Pulse Oximetry: 98 Respiratory Rate: 16 Vital Signs: Last Vital Signs Temp 36.4 C 10/27/16 07:49 Pulse 69 10/27/16 07:49 Resp 16 10/27/16 07:49 BP 99/67 10/27/16 07:49 Pulse Ox 98 10/27/16 07:49 Height: 1.65 m Weight: 52.617 kg ASA Class: 2 Mental Status: Alert & Oriented x3 Airway Class: Mallampati = 2 Dentition: Reports: Normal Dentition ROM/Head Extension: Full Lungs: Clear to auscultation, Normal respiratory effort Cardiovascular: Regular Rate, Regular Rhythm - Lab Values: Laboratory Last Values WBC 7.29 K/uL (4.0-11.0) 10/26/16 13:48 RBC 4.33 M/uL (4.30-5.90) 10/26/16 13:48 Hgb 13.5 g/dL (12.0-16.0) 10/26/16 13:48 Hct 40.6 % (36.0-46.0) 10/26/16 13:48 MCV 93.8 fL (80.0-98.0) 10/26/16 13:48 MCH 31.2 pg (27.0-32.0) 10/26/16 13:48 MCHC 33.3 g/dL (31.0-37.0) 10/26/16 13:48 RDW Std Deviation 44.7 fl (28.0-62.0) 10/26/16 13:48 RDW Coeff of Dominic 13 % (11.0-15.0) 10/26/16 13:48 Plt Count 270 K/uL (150-400) 10/26/16 13:48 MPV 11.00 fL (7.40-12.00) 10/26/16 13:48 Nucleated RBC % 0.0 /100WBC 10/26/16 13:48 Nucleated RBCs # 0 K/uL 10/26/16 13:48 Sodium 141 mmol/L (136-146) 10/26/16 13:48 Potassium 3.6 mmol/L (3.5-5.1) 10/26/16 13:48 Chloride 105 mmol/L (98-110) 10/26/16 13:48 Carbon Dioxide 30 mmol/L (21-31) 10/26/16 13:48 BUN 18 mg/dL (6.0-23.0) 10/26/16 13:48 Creatinine 0.8 mg/dL (0.6-1.5) 10/26/16 13:48 Est Cr Clr Drug Dosing 72.99 mL/min 10/26/16 13:48 Estimated GFR (MDRD) > 60.0 ml/min 10/26/16 13:48 Glucose 79 mg/dL (60-110) 10/26/16 13:48 Calcium 8.9 mg/dL (8.8-10.8) 10/26/16 13:48 Blood Type A POSITIVE 10/26/16 13:48 Antibody Screen NEGATIVE 10/26/16 13:48 - Allergies Allergies/Adverse Reactions: Allergies Allergy/AdvReac Type Severity Reaction Status Date / Time animal dander Allergy watery Verified 10/10/16 07:37 eyes/itching oxycodone Allergy Nausea Verified 10/10/16 07:37 - Anesthesia Plan Pre-Op Medication Ordered: Other (scop patch) - Acknowledgements Anesthesia Type Planned: General Anesthesia Pt an Appropriate Candidate for the Planned Anesthesia: Yes Alternatives and Risks of Anesthesia Discussed w Pt/Guardian: Yes Pt/Guardian Understands and Agrees with Anesthesia Plan: Yes PreAnesthesia Questionnaire HEENT History: Reports: Allergic rhinitis, Other (see below) Other HEENT History: wears glasses Cardiovascular History: Reports: None Respiratory History: Reports: None Gastrointestinal History: Reports: None Genitourinary History: Reports: None REFRIGERATOR MOVER History: Reports: Spontaneous Musculoskeletal History: Reports: None Neurological History: Reports: Other (see below) Other Neuro History: hx of motion sickness Psychiatric History: Reports: Anxiety Endocrine/Metabolic History: Reports: None Hematologic History: Reports: None Immunologic History: Reports: None Oncologic (Cancer) History: Reports: Uterine Dermatologic History: Reports: None - Infectious Disease History Infectious Disease History: Reports: None - Past Surgical History Head Surgeries/Procedures: Reports: None HEENT Surgical History: Reports: Oral surgery, Tonsillectomy Female Surgical History: Reports: Hysterectomy, Tubal ligation Musculoskeletal Surgical History: Reports: Other (see below) Other Musculoskeletal Surgeries/Procedures:: foot surgery to remove spur from big toe and to correct her flat feet Other Oncologic Surgeries/Procedures: recent hysterectomy - SUBSTANCE USE Smoking Status *Q: Former Smoker Recreational Drug Use History: No - HOME MEDS Home Medications: Home Meds Cetirizine [ZyrTEC] 10 mg PO ASDIRECTED PRN 10/04/16 [History] Cyclobenzaprine HCl 10 mg PO ASDIRECTED PRN 10/04/16 [History] diphenhydrAMINE [Benadryl] 25 mg PO BEDTIME PRN 10/04/16 [History] hydrOXYzine Pamoate [Hydroxyzine Pamoate] 25 mg PO TID PRN 10/25/16 [History] - CURRENT (IN HOUSE) MEDS Current Meds: Current Medications Lactated Ringer's (Ringers, Lactated) 1,000 mls @ 500 mls/hr IV .BOLUS NOÉ Last Admin: 10/27/16 07:51 Dose: 500 mls/hr Scopolamine (Transderm-Scop) 1.5 mg TRDERM Q72H PRN PRN Reason: Nausea/Vomiting Sodium Chloride (Saline Flush) 10 ml FLUSH ASDIRECTED PRN PRN Reason: Keep Vein Open Sodium Chloride (Saline Flush) 2.5 ml FLUSH ASDIRECTED PRN PRN Reason: Keep Vein Open Discontinued Medications Fentanyl (Sublimaze) Confirm Administered Dose 250 mcg .ROUTE .STK-MED ONE Stop: 10/27/16 07:06 Glycopyrrolate () Confirm Administered Dose 1 mg .ROUTE .STK-MED ONE Stop: 10/27/16 07:05 Cefazolin Sodium/Dextrose 1 gm (/ Premix) 50 mls @ 100 mls/hr IV ONETIME ONE Stop: 10/26/16 09:41 Lidocaine (Xylocaine-Mpf 2%) Confirm Administered Dose 5 ml .ROUTE .STK-MED ONE Stop: 10/27/16 07:05 Midazolam HCl (Versed 1 Mg/Ml) Confirm Administered Dose 2 mg .ROUTE .STK-MED ONE Stop: 10/27/16 07:06 Neostigmine Methylsulfate (Neostigmine) Confirm Administered Dose 5 mg .ROUTE .STK-MED ONE Stop: 10/27/16 07:05 Ondansetron HCl (Zofran) Confirm Administered Dose 4 mg .ROUTE .STK-MED ONE Stop: 10/27/16 07:05 Propofol (Diprivan 20 Ml) Confirm Administered Dose 200 mg .ROUTE .STK-MED ONE Stop: 10/27/16 07:06 Rocuronium [place] (Zemuron) Confirm Administered Dose 100 mg .ROUTE .STK-MED ONE Stop: 10/27/16 07:05
[2016-10-27] MEDS ORDERED: Octyl 2-Cyanoacrylate 1 Tube ONE (08:52)
[2016-10-27] MEDS ORDERED: ePHEDrine 50 MG/ML SDV ONE (09:17)
[2016-10-27] MEDS ORDERED: Dexamethasone 4 MG/ML 5 ML MDV ONE (09:21)
[2016-10-27] MEDS ORDERED: Phenylephrine/Normal Saline 100 MCG/ML 10 ML Syringe ONE (09:26)
[2016-10-27] MEDS ORDERED: Fluorescein 5 ML Vial ONE (11:13)
[2016-10-27] MEDS ORDERED: Furosemide 40 MG/4 ML VIAL ONE (11:13)
[2016-10-27] MEDS ORDERED: Acetaminophen/oxyCODONE 325-5 MG Tab PO PRN ×2 (11:41)
[2016-10-27] MEDS ORDERED: Morphine 2 MG/ML Syringe IVPUSH PRN (11:41)
[2016-10-27] MEDS ORDERED: Morphine 4 MG/ML Syringe IVPUSH PRN (11:41)
[2016-10-27] MEDS ORDERED: Ondansetron 4 MG/2 ML SDV IVPUSH PRN (11:41)
[2016-10-27] MEDS ORDERED: Ketorolac 30 MG/ML SDV IVPUSH ONE (11:41)
[2016-10-27] MEDS ORDERED: Promethazine 25 MG/ML SDV IM PRN (11:41)
[2016-10-27] MEDS ORDERED: fentaNYL 100 MCG/2 ML SDV ONE (12:28)
[2016-10-27] MEDS: fentaNYL 100 MCG/2 ML SDV IVPUSH PRN ×4 (12:29→12:44)
[2016-10-27] MEDS ORDERED: Haloperidol Lactate 5 MG/ML SDV IM ONE (13:04)
[2016-10-27] MEDS ORDERED: fentaNYL 250 MCG/5 ML SDV ONE (13:05)
[2016-10-27] MEDS ORDERED: Acetaminophen 1,000 MG in Premix Bag 1 BAG IV ONE (13:05)
[2016-10-27] MEDS: HYDROmorphone 2 MG/ML Syringe IVPUSH PRN ×3 (13:33→14:01)
--- NOTE | 2016-10-27 13:54 | PCM.POSTAN ---
POST ANESTHESIA ASSESSMENT - MENTAL STATUS Mental Status: alert, oriented - RESPIRATORY Respiratory Status: respiratory rate WNL, airway patent, O2 saturation stable - CARDIOVASCULAR CV Status: pulse rate WNL, blood pressure stable - GASTROINTESTINAL GI Status: nauseau - PAIN Pain Score: 4 - POST OP HYDRATION Hydration Status: adequate & stable - OBSERVATIONS Free Text/Narrative:: Pain and nausea significantly better, currently going to the floor for observation.
[2016-10-27] MEDS ORDERED: Lactated Ringers 1,000 ML IV SCH (14:00)
[2016-10-27] MEDS: Ketorolac 30 MG/ML SDV IVPUSH PRN (17:48)
--- NOTE | 2016-10-27 19:21 | PCM48HPAN ---
Post Anesthesia Note - EVALUATION WITHIN 48HRS OF ANESTHETIC Vital Signs in Normal Range: Yes Patient Participated in Evaluation: Yes Respiratory Function Stable: Yes Airway Patent: Yes Cardiovascular Function Stable: Yes Hydration Status Stable: Yes Pain Control Satisfactory: Yes Nausea and Vomiting Control Satisfactory: Yes Mental Status Recovered: Yes
[2016-10-28] MEDS: Ketorolac 30 MG/ML SDV IVPUSH PRN ×2 (00:50→07:34)
[2016-10-28 05:26] LABS: CHLORIDE,CL 107 mmol/L (98-110); SODIUM,NA 139 mmol/L (136-146)
--- NOTE | 2016-10-28 08:51 | PCM.SURGPN ---
- General Info Date of Service: 10/28/16 POD#: 1 Functional Status: Reports: pain controlled - Review of Systems General: Reports: No Symptoms HEENT: Reports: no symptoms Pulmonary: Reports: no symptoms Cardiovascular: Reports: No Symptoms Gastrointestinal: Reports: No symptoms Genitourinary: Reports: no symptoms Musculoskeletal: Reports: no symptoms Skin: Reports: no symptoms Neurological: Reports: No Symptoms Psychiatric: Reports: no symptoms - Patient Data Vitals - most recent: Last Vital Signs Temp 36.2 C 10/28/16 04:43 Pulse 58 L 10/28/16 04:43 Resp 16 10/28/16 04:43 BP 90/63 10/28/16 04:43 Pulse Ox 98 10/28/16 04:43 Weight - most recent: 52.617 kg I&O - last 24 hours: Intake & Output 10/27/16 10/28/16 10/28/16 22:59 06:59 14:59 Intake Total 150 700 Output Total 250 600 Balance -100 100 Lab Results last 24 hrs: Laboratory Results - last 24 hr 10/28/16 10/28/16 Range/Units 04:50 04:50 WBC 13.17 H (4.0-11.0) K/uL RBC 3.69 L (4.30-5.90) M/uL Hgb 11.5 L (12.0-16.0) g/dL Hct 34.1 L (36.0-46.0) % MCV 92.4 (80.0-98.0) fL MCH 31.2 (27.0-32.0) pg MCHC 33.7 (31.0-37.0) g/dL RDW Std Deviation 44.0 (28.0-62.0) fl RDW Coeff of Dominic 13 (11.0-15.0) % Plt Count 215 (150-400) K/uL MPV 11.30 (7.40-12.00) fL Neut % (Auto) 74.9 (48.0-80.0) % Lymph % (Auto) 16.0 (16.0-40.0) % [place] % (Auto) 8.9 (0.0-15.0) % Eos % (Auto) 0.1 (0.0-7.0) % Baso % (Auto) 0.1 (0.0-1.5) % Neut # (Auto) 9.9 H (1.4-5.7) K/uL Lymph # (Auto) 2.1 (0.6-2.4) K/uL [place] # (Auto) 1.2 H (0.0-0.8) K/uL Eos # (Auto) 0.0 (0.0-0.7) K/uL Baso # (Auto) 0.0 (0.0-0.1) K/uL Nucleated RBC % 0.0 /100WBC Nucleated RBCs # 0 K/uL Sodium 139 (136-146) mmol/L Potassium 4.2 (3.5-5.1) mmol/L Chloride 107 (98-110) mmol/L Carbon Dioxide 25 (21-31) mmol/L BUN 12 (6.0-23.0) mg/dL Creatinine 0.7 (0.6-1.5) mg/dL Est Cr Clr Drug Dosing 83.41 mL/min Estimated GFR (MDRD) > 60.0 ml/min Glucose 108 (60-110) mg/dL Calcium 8.4 L (8.8-10.8) mg/dL Med Orders - Current: Current Medications Fentanyl (Sublimaze) 50 mcg IVPUSH Q5M PRN PRN Reason: Pain (severe 7-10) Stop: 10/28/16 12:27 Last Admin: 10/27/16 12:44 Dose: 50 mcg Hydromorphone HCl (Dilaudid) 0.5 mg IVPUSH ASDIRECTED PRN PRN Reason: Pain Last Admin: 10/27/16 14:01 Dose: 0.5 mg Lactated Ringer's (Ringers, Lactated) 1,000 mls @ 500 mls/hr IV .BOLUS NOÉ Last Admin: 10/27/16 08:14 Dose: 500 mls/hr Lactated Ringer's (Ringers, Lactated) 1,000 mls @ 100 mls/hr IV ASDIRECTED NOÉ Ketorolac Tromethamine (Toradol) 30 mg IVPUSH Q6H PRN PRN Reason: Pain (severe 7-10) Stop: 11/01/16 11:41 Last Admin: 10/28/16 07:34 Dose: 30 mg Morphine Sulfate (Morphine) 2 mg IVPUSH Q2H PRN PRN Reason: Pain (severe 7-10) Last Admin: 10/27/16 18:55 Dose: 2 mg Morphine Sulfate (Morphine) 4 mg IVPUSH Q2H PRN PRN Reason: Pain (severe 7-10) Ondansetron HCl (Zofran) 4 mg IVPUSH Q6H PRN PRN Reason: Nausea/Vomiting Last Admin: 10/27/16 20:17 Dose: 4 mg Oxycodone/Acetaminophen (Percocet 325-5 Mg) 1 tab PO Q4H PRN PRN Reason: Pain (moderate 4-6) Oxycodone/Acetaminophen (Percocet 325-5 Mg) 2 tab PO Q4H PRN PRN Reason: Pain (moderate 4-6) Promethazine HCl (Phenergan) 25 mg IM Q6H PRN PRN Reason: Nausea/Vomiting Last Admin: 10/27/16 12:51 Dose: 25 mg Scopolamine (Transderm-Scop) 1.5 mg TRDERM Q72H PRN PRN Reason: Nausea/Vomiting Last Admin: 10/27/16 08:15 Dose: 1.5 mg Sodium Chloride (Saline Flush) 10 ml FLUSH ASDIRECTED PRN PRN Reason: Keep Vein Open Sodium Chloride (Saline Flush) 2.5 ml FLUSH ASDIRECTED PRN PRN Reason: Keep Vein Open Discontinued Medications Dexamethasone (Dexamethasone) Confirm Administered Dose 20 mg .ROUTE .STK-MED ONE Stop: 10/27/16 09:22 Ephedrine Sulfate (Ephedrine Sulfate) Confirm Administered Dose 50 mg .ROUTE .STK-MED ONE Stop: 10/27/16 09:18 Fentanyl (Sublimaze) Confirm Administered Dose 250 mcg .ROUTE .STK-MED ONE Stop: 10/27/16 07:06 Fentanyl (Sublimaze) Confirm Administered Dose 100 mcg .ROUTE .STK-MED ONE Stop: 10/27/16 12:29 Last Admin: 10/27/16 16:29 Dose: Not Given Fentanyl (Sublimaze) Confirm Administered Dose 250 mcg .ROUTE .STK-MED ONE Stop: 10/27/16 13:06 Fluorescein Sodium (Ak-Fluor) Confirm Administered Dose 5 ml .ROUTE .STK-MED ONE Stop: 10/27/16 11:14 Furosemide (Lasix) Confirm Administered Dose 40 mg .ROUTE .STK-MED ONE Stop: 10/27/16 11:14 Glycopyrrolate () Confirm Administered Dose 1 mg .ROUTE .STK-MED ONE Stop: 10/27/16 07:05 Haloperidol Lactate (Haldol) 0.5 mg IM ONETIME ONE Stop: 10/27/16 13:05 Last Admin: 10/27/16 13:19 Dose: 0.5 mg Cefazolin Sodium/Dextrose 1 gm (/ Premix) 50 mls @ 100 mls/hr IV ONETIME ONE Stop: 10/26/16 09:41 Last Admin: 10/27/16 16:28 Dose: Not Given Acetaminophen 1,000 mg/ Premix 100 mls @ 400 mls/hr IV NOW ONE Stop: 10/27/16 13:19 Last Infusion: 10/27/16 13:15 Dose: 125 mls/hr Acetaminophen (Ofirmev) Confirm Administered Dose 100 mls @ as directed IV .STK- MED ONE Stop: 10/27/16 13:11 Last Admin: 10/27/16 19:37 Dose: Not Given Ketorolac Tromethamine (Toradol) 30 mg IVPUSH ONETIME ONE Stop: 10/27/16 11:42 Last Admin: 10/27/16 16:28 Dose: Not Given Lidocaine (Xylocaine-Mpf 2%) Confirm Administered Dose 5 ml .ROUTE .STK-MED ONE Stop: 10/27/16 07:05 Midazolam HCl (Versed 1 Mg/Ml) Confirm Administered Dose 2 mg .ROUTE .STK-MED ONE Stop: 10/27/16 07:06 Neostigmine Methylsulfate (Neostigmine) Confirm Administered Dose 5 mg .ROUTE .STK-MED ONE Stop: 10/27/16 07:05 Octyl Cyanoacrylate (Dermabond Advance) Confirm Administered Dose 1 applic .ROUTE .STK-MED ONE Stop: 10/27/16 08:53 Ondansetron HCl (Zofran) Confirm Administered Dose 4 mg .ROUTE .STK-MED ONE Stop: 10/27/16 07:05 Phenylephrine HCl (Phenylephrine In Ns 100 Mcg/Ml) Confirm Administered Dose 1 mg .ROUTE .STK-MED ONE Stop: 10/27/16 09:27 Propofol (Diprivan 20 Ml) Confirm Administered Dose 200 mg .ROUTE .STK-MED ONE Stop: 10/27/16 07:06 Rocuronium [place] (Zemuron) Confirm Administered Dose 100 mg .ROUTE .STK-MED ONE Stop: 10/27/16 07:05 Scopolamine (Transderm-Scop) Confirm Administered Dose 1.5 mg .ROUTE .STK-MED ONE Stop: 10/27/16 08:12 Last Admin: 10/27/16 16:28 Dose: Not Given - Exam Wound/Incisions: healing well General: alert, oriented HEENT: Pupils equal Neck: supple Lungs: Clear to auscultation, Normal respiratory effort Cardiovascular: Regular Rate, Regular Rhythm Abdomen: bowel sounds present, soft, no tenderness, no distension Extremities: no edema Skin: warm, dry, intact Neurological: no new focal deficit Psy/Mental Status: alert, normal affect, normal mood - Problem List Review Problem List Initiated/Reviewed/Updated: Yes - My Orders Last 24 Hours: Active Orders 24 hr Category Date Time Status Admission Status [Patient Status] [ADT] Routine ADT 10/27/16 16:15 Active Antiembolic Devices [RC] PER UNIT ROUTINE Care 10/27/16 11:41 Active Bradycardia-Neuroaxis [employer] [RC] ROUTINE Care 10/27/16 12:27 Active Communication Order [RC] ROUTINE Care 10/27/16 16:19 Active Hypertension-Neuroaxis [employer] [RC] ROUTINE Care 10/27/16 12:27 Active Hypotension-Neuroaxis [employer] [RC] ROUTINE Care 10/27/16 12:27 Active Notify Provider Vital Signs [RC] ASDIRECTED Care 10/27/16 11:41 Active RT Incentive Spirometry [RC] Q2HWA Care 10/27/16 11:41 Active Up With Assistance [RC] PER UNIT ROUTINE Care 10/27/16 11:41 Active Up ad Cindy [RC] PER UNIT ROUTINE Care 10/27/16 11:41 Active Vital Signs [RC] PER UNIT ROUTINE Care 10/27/16 11:41 Active Regular Diet [DIET] Diet 10/27/16 Dinner Active Acetaminophen/oxyCODONE [Percocet 325-5 MG] Med 10/27/16 11:41 Active 1 tab PO Q4H PRN Acetaminophen/oxyCODONE [Percocet 325-5 MG] Med 10/27/16 11:41 Active 2 tab PO Q4H PRN HYDROmorphone [Dilaudid] Med 10/27/16 13:26 Active 0.5 mg IVPUSH ASDIRECTED PRN Ketorolac [Toradol] Med 10/27/16 11:41 Active 30 mg IVPUSH Q6H PRN Lactated Ringers [Ringers, Lactated] 1,000 ml Med 10/27/16 14:00 Active IV ASDIRECTED Morphine Med 10/27/16 11:41 Active 2 mg IVPUSH Q2H PRN Morphine Med 10/27/16 11:41 Active 4 mg IVPUSH Q2H PRN Ondansetron [Zofran] Med 10/27/16 11:41 Active 4 mg IVPUSH Q6H PRN Promethazine [Phenergan] Med 10/27/16 11:41 Active 25 mg IM Q6H PRN Scopolamine [Transderm-Scop] Med 10/27/16 08:08 Active 1.5 mg TRDERM Q72H PRN fentaNYL [Sublimaze] Med 10/27/16 12:27 Active 50 mcg IVPUSH Q5M PRN Peripheral IV Discontinue [OM.PC] Routine Oth 10/27/16 11:41 Ordered Sequential Compression Device [OM.PC] Per Unit Routine Oth 10/27/16 11:41 Ordered Resuscitation Status Routine Resus Stat 10/27/16 11:41 Ordered Medication Orders Fentanyl (Sublimaze) 50 mcg IVPUSH Q5M PRN PRN Reason: Pain (severe 7-10) Stop: 10/28/16 12:27 Last Admin: 10/27/16 12:44 Dose: 50 mcg Admin: 10/27/16 12:39 Dose: 50 mcg Admin: 10/27/16 12:34 Dose: 50 mcg Admin: 10/27/16 12:29 Dose: 50 mcg Hydromorphone HCl (Dilaudid) 0.5 mg IVPUSH ASDIRECTED PRN PRN Reason: Pain Last Admin: 10/27/16 14:01 Dose: 0.5 mg Admin: 10/27/16 13:51 Dose: 0.5 mg Admin: 10/27/16 13:33 Dose: 0.5 mg Lactated Ringer's (Ringers, Lactated) 1,000 mls @ 500 mls/hr IV .BOLUS NOÉ Last Admin: 10/27/16 08:14 Dose: 500 mls/hr Infusion: 10/27/16 08:14 Dose: 500 mls/hr Admin: 10/27/16 07:51 Dose: 500 mls/hr Lactated Ringer's (Ringers, Lactated) 1,000 mls @ 100 mls/hr IV ASDIRECTED NOÉ Ketorolac Tromethamine (Toradol) 30 mg IVPUSH Q6H PRN PRN Reason: Pain (severe 7-10) Stop: 11/01/16 11:41 Last Admin: 10/28/16 07:34 Dose: 30 mg Admin: 10/28/16 00:50 Dose: 30 mg Admin: 10/27/16 17:48 Dose: 30 mg Morphine Sulfate (Morphine) 2 mg IVPUSH Q2H PRN PRN Reason: Pain (severe 7-10) Last Admin: 10/27/16 18:55 Dose: 2 mg Morphine Sulfate (Morphine) 4 mg IVPUSH Q2H PRN PRN Reason: Pain (severe 7-10) Ondansetron HCl (Zofran) 4 mg IVPUSH Q6H PRN PRN Reason: Nausea/Vomiting Last Admin: 10/27/16 20:17 Dose: 4 mg Oxycodone/Acetaminophen (Percocet 325-5 Mg) 1 tab PO Q4H PRN PRN Reason: Pain (moderate 4-6) Oxycodone/Acetaminophen (Percocet 325-5 Mg) 2 tab PO Q4H PRN PRN Reason: Pain (moderate 4-6) Promethazine HCl (Phenergan) 25 mg IM Q6H PRN PRN Reason: Nausea/Vomiting Last Admin: 10/27/16 12:51 Dose: 25 mg Scopolamine (Transderm-Scop) 1.5 mg TRDERM Q72H PRN PRN Reason: Nausea/Vomiting Last Admin: 10/27/16 08:15 Dose: 1.5 mg Sodium Chloride (Saline Flush) 10 ml FLUSH ASDIRECTED PRN PRN Reason: Keep Vein Open Sodium Chloride (Saline Flush) 2.5 ml FLUSH ASDIRECTED PRN PRN Reason: Keep Vein Open - Assessment Assessment (Free Text/Narrative):: Status post diagnostic laparoscopy bilateral salpingo-oophorectomy and bilateral pelvic lymph node dissection postoperative day #1 patient doing well on regular diet ambulating fine voiding without any problem and on regular diet - Plan Plan (Free Text/Narrative):: I'm sending the patient home today post surgery instructions given to the patient prescription for Percocet 7.5/325 for pain is given followup appointment in one week
[2016-10-28 09:08] VITALS: BP 93/60
--- NOTE | 2016-10-31 06:30 | OR ---
SURGEON: Jordan Victoria MD DATE OF PROCEDURE: PREOPERATIVE DIAGNOSIS: Endometrial carcinoma. POSTOPERATIVE DIAGNOSIS: Endometrial carcinoma. OPERATION PERFORMED: Multiple puncture diagnostic laparoscopy, bilateral oophorectomy, incidental appendectomy, bilateral dissection and sampling of pelvic lymph node, and cystoscopy. BENEFITS DIRECTOR: CHAITANYA Corrigan. ANESTHESIA: General endotracheal intubation by Derick Isabel and Dr. Matos. ESTIMATED BLOOD LOSS: Less than 100 mL. COMPLICATIONS: None. FINDINGS: Pelvic adhesion from her previous surgery and otherwise normal ovaries. INDICATION FOR SURGERY: This patient had a laparoscopic hysterectomy 3 weeks ago and pathology on the uterus shows well-differentiated adenocarcinoma stage I, grade 1, with invasion less than 1/2 of the depth of the uterus that was confirmed by second opinion on the pathology. The patient was counseled and she needed to come back to finish her treatment by doing bilateral oophorectomy and bilateral pelvic lymph node sampling. PROCEDURE IN DETAIL: The patient was brought to the OR, properly identified and Booker catheter was placed in the bladder, and sponge and stick was placed in the vagina for identification. The operation was started by inserting the Veress needle in the peritoneal cavity and that cavity insufflated with 6 L of carbon dioxide. The skin incision was enlarged to accommodate the 5-mm trocar and 5-mm scope through it, 10-12 was placed in the left iliac fossa under direct vision through the old incision and two 5 mm trocars, one suprapubically, one in the right iliac fossa done under direct vision. The operation was started by lysing the adhesion from the small intestine around the vaginal cuff and in the process of doing this I opened the vaginal cuff to use as a port to remove the specimen later on. Then, there was an adhesion between the sigmoid colon and left side pelvic wall that was lysed restoring normal anatomy. The appendix was adherent to the ovary and so an incidental appendectomy was performed at this time by using a harmonic scapula to coagulate, transect appendicular artery and the appendix base was tied twice with Endoloops and then another Endoloops anteriorly and the appendix is transected and removed vaginally. Thorough irrigation of the pelvis was done at this time. Next step is, attention was paid to the right ovary. In the right ovary using the Harmonic scalpel, is removed by coagulating and transecting the superior pedicle. The uterus was removed and placed in the vagina to be removed later. Then, the pelvic sidewall was opened by transecting the round ligament and opening the pelvic sidewall by dissecting the peritoneum upward and downward. The ureter retracted medially and paracervical space and pararectal space were identified and entered at this time. The obturator nerve was identified as a boundary of the pararectal space and the internal iliac artery was mobilized and dissected away from the pelvic sidewall and we started by meticulously removing all the lymph node and fatty tissue from around the internal iliac artery, external iliac artery, and internal into external iliac artery and veins, and the tissue is uniformly collected. The lymph node around the obturator nerve is collected and removed with a thorough blunt and sharp dissection. There was minimum and no bleeding in this space. The ureter was always safe and away from harm's way. After removing all and sampling of the lymph node thorough irrigation was done. There was no oozing, no bleeding. In the same manner, the left pelvic sidewall was opened and after identifying the paravesical and pararectal space in the same manner and the ureter retracted medially away from the operative field. Lymph node was removed from around internal and external iliac artery and vein and obturator nerve. Specimen was collected in each side is labelled left and right ovary and lymph node sampling and sent for pathology and after that thorough irrigation of the operative field was done. There was no oozing, no bleeding. Then, the vaginal cuff was closed with 2-0 PDS interrupted suture. While we were doing that, we asked anesthesiologist to give the patient fluorescein and the Booker catheter is removed. Cystoscopy was performed. The bladder was intact. Both ureteric orifices were seen with the dye coming from both of them. Thus, the patency of both ureters verified. Satisfied with these findings, the procedure was ended. The instrument and hardware retrieved from the abdomen and the vagina and the multiple laparoscopic incisions were closed in layer. Instrument and sponge count were correct. The patient tolerated the procedure well, went to recovery room in stable general condition. MYRIAM HOU /[id number]
== END 2016-10-28 10:00 | disposition home or self-care (01) ==
LOC: MW.SDS 07:40 → MW.MS 09:12 → MW.SDS 10-28 10:00
PROVIDERS: ATTEND Obstetrics & Gynecology
PROC: 0UT24ZZ Resection of Bilateral Ovaries, Percutaneous Endoscopic Approach (ICD-10-PCS; principal; 2016-10-27)
PROC: 0DTJ4ZZ Resection of Appendix, Percutaneous Endoscopic Approach (ICD-10-PCS; 2016-10-27)
PROC: 07BC4ZX Excision of Pelvis Lymphatic, Percutaneous Endoscopic Approach, Diagnostic (ICD-10-PCS; 2016-10-27)
DX: C54.1 Malignant neoplasm of endometrium (principal); N83.02 Follicular cyst of left ovary; N83.01 Follicular cyst of right ovary; Z90.710 Acquired absence of both cervix and uterus; Z88.5 Allergy status to narcotic agent; Z91.048 Other nonmedicinal substance allergy status; Z87.891 Personal history of nicotine dependence
CPT/HCPCS: 36415; 38570; 44979; 58661; 80048; 85025; 85027; 86850; 86900; 86901; A9270; J1100; J1170; J1630; J1885; J1940; J2250; J2270; J2405; J2550; J3010; J7120; 00840; 88304; 88305; J2704

== ENCOUNTER 2016-10-29 14:17 | Emergency (ER) | payer BC ==
[2016-10-29] MEDS ORDERED: Ondansetron 4 MG/2 ML SDV IVPUSH ONE (14:45)
[2016-10-29] MEDS ORDERED: fentaNYL 100 MCG/2 ML SDV IVPUSH ONE (14:45)
[2016-10-29] MEDS ORDERED: Sodium Chloride 0.9% 1,000 ML IV ONE (14:45)
[2016-10-29] MEDS ORDERED: Prochlorperazine 10 MG in Sodium Chloride 0.9% 50 ML IV ONE (14:46)
--- NOTE | 2016-10-29 15:11 | EDM.PDOC ---
ED HPI GENERAL MEDICAL PROBLEM - General Chief Complaint: Gastrointestinal Problem Stated Complaint: PAIN AND NAUSEA Time Seen by Provider: 10/29/16 14:45 Source of Information: Reports: Patient, Family History Limitations: Reports: No limitations - History of Present Illness INITIAL COMMENTS - FREE TEXT/NARRATIVE: History of present illness: [[id number] female presenting status post hysterectomy and subsequent nephrectomy secondary to carcinoma. Patient has been struggling with nausea since the procedure secondary to some reactions to anesthesia as well as her pain medications. Patient last night quit taking her pain medication because she couldn't tolerate the nausea and presents today with uncontrolled pain and subsequent nausea.] Review of systems: As per history of present illness and below otherwise all systems reviewed and negative. Past medical history: As per history of present illness and as reviewed below otherwise noncontributory. Surgical history: As per history of present illness and as reviewed below otherwise noncontributory. Social history: No reported history of drug or alcohol abuse. Family history: As per history of present illness and as reviewed below otherwise noncontributory. Physical exam: HEENT: Atraumatic, normocephalic, pupils reactive, negative for conjunctival pallor or scleral icterus, mucous membranes moist, throat clear, neck supple, nontender, trachea midline. Lungs: Clear to auscultation, breath sounds equal bilaterally, chest nontender. Heart: S1S2, regular, negative for clicks, rubs, or JVD. Abdomen: Soft, nondistended, nontender. Negative for masses or hepatosplenomegaly. Negative for costovertebral tenderness. Pelvis: Stable nontender. Genitourinary: Deferred. Rectal: Deferred. Extremities: Atraumatic, negative for cords or calf pain. Neurovascular unremarkable. Neuro: Awake, alert, oriented. Cranial nerves II through XII unremarkable. Cerebellum unremarkable. Motor and sensory unremarkable throughout. Exam nonfocal. Diagnostics: [CBC, CMP] Therapeutics: [IV fluid,Zofran, fentanyl, Dilaudid, Compazine, Ativan] Impression: [Intractable pain, nausea or anxiety] Plan: [Antiemetics, and anxielytics] Definitive disposition and diagnosis as appropriate pending reevaluation and review of above. Abdomen Pain Score (Numeric/FACES): 9 - Related Data Allergies Allergy/AdvReac Type Severity Reaction Status Date / Time animal dander Allergy watery Verified 10/29/16 14:45 eyes/itching oxycodone Allergy Nausea Verified 10/29/16 14:45 Home Meds: Home Meds Cetirizine [ZyrTEC] 10 mg PO ASDIRECTED PRN 10/04/16 [History] Cyclobenzaprine HCl 10 mg PO ASDIRECTED PRN 10/04/16 [History] diphenhydrAMINE [Benadryl] 25 mg PO BEDTIME PRN 10/04/16 [History] hydrOXYzine Pamoate [Hydroxyzine Pamoate] 25 mg PO TID PRN 10/25/16 [History] Ondansetron [Zofran ODT] 4 mg PO Q4H #30 tab.dis 10/29/16 [Rx] Prochlorperazine [Compazine] 10 mg PO Q8H #30 tablet 10/29/16 [Rx] Promethazine HCl [Phenergan] 50 mg RC TID PRN #30 supp.rect 10/29/16 [Rx] Past Medical History HEENT History: Reports: Allergic rhinitis, Other (see below) Other HEENT History: wears glasses Cardiovascular History: Reports: None Respiratory History: Reports: None Gastrointestinal History: Reports: None Genitourinary History: Reports: None M[employer] History: Reports: Spontaneous Musculoskeletal History: Reports: None Neurological History: Reports: Other (see below) Other Neuro History: hx of motion sickness Psychiatric History: Reports: Anxiety Endocrine/Metabolic History: Reports: None Hematologic History: Reports: None Immunologic History: Reports: None Oncologic (Cancer) History: Reports: Uterine Dermatologic History: Reports: None - Infectious Disease History Infectious Disease History: Reports: None - Past Surgical History Head Surgeries/Procedures: Reports: None HEENT Surgical History: Reports: Oral surgery, Tonsillectomy Female Surgical History: Reports: Hysterectomy, Tubal ligation Musculoskeletal Surgical History: Reports: Other (see below) Other Musculoskeletal Surgeries/Procedures:: foot surgery to remove spur from big toe and to correct her flat feet Other Oncologic Surgeries/Procedures: recent hysterectomy Social & Family History - Family History Family Medical History: Noncontributory - Tobacco Use Smoking Status *Q: Never Smoker Used Tobacco, but Quit: Yes Month Tobacco Last Used: quit smoking 2004 Second Hand Smoke Exposure: No - Caffeine Use Caffeine Use: Reports: None - Recreational Drug Use Recreational Drug Use: No Drug Use in Last 12 Months: No ED ROS GENERAL - Review of Systems Review Of Systems: See Below (History of present illness) ED EXAM, GENERAL - Physical Exam Exam: See Below (History of present illness) Course - Vital Signs Last Recorded V/S: Last Vital Signs Temp 37.0 C 10/29/16 14:42 Pulse 105 H 10/29/16 14:42 Resp 20 10/29/16 14:42 BP 105/83 10/29/16 14:42 Pulse Ox 95 10/29/16 14:42 - Orders/Labs/Meds Labs: Laboratory Tests 10/29/16 10/29/16 Range/Units 14:55 14:55 WBC 11.26 H (4.0-11.0) K/uL RBC 3.99 L (4.30-5.90) M/uL Hgb 12.3 (12.0-16.0) g/dL Hct 36.8 (36.0-46.0) % MCV 92.2 (80.0-98.0) fL MCH 30.8 (27.0-32.0) pg MCHC 33.4 (31.0-37.0) g/dL RDW Std Deviation 44.2 (28.0-62.0) fl RDW Coeff of Dominic 13 (11.0-15.0) % Plt Count 212 (150-400) K/uL MPV 11.10 (7.40-12.00) fL Neut % (Auto) 77.4 (48.0-80.0) % Lymph % (Auto) 11.4 L (16.0-40.0) % [place] % (Auto) 8.7 (0.0-15.0) % Eos % (Auto) 2.3 (0.0-7.0) % Baso % (Auto) 0.2 (0.0-1.5) % Neut # (Auto) 8.7 H (1.4-5.7) K/uL Lymph # (Auto) 1.3 (0.6-2.4) K/uL [place] # (Auto) 1.0 H (0.0-0.8) K/uL Eos # (Auto) 0.3 (0.0-0.7) K/uL Baso # (Auto) 0.0 (0.0-0.1) K/uL Nucleated RBC % 0.0 /100WBC Nucleated RBCs # 0 K/uL Sodium 136 (136-146) mmol/L Potassium 3.5 (3.5-5.1) mmol/L Chloride 106 (98-110) mmol/L Carbon Dioxide 19 L (21-31) mmol/L BUN 13 (6.0-23.0) mg/dL Creatinine 0.7 (0.6-1.5) mg/dL Est Cr Clr Drug Dosing 82.69 mL/min Estimated GFR (MDRD) > 60.0 ml/min Glucose 113 H (60-110) mg/dL Calcium 9.3 (8.8-10.8) mg/dL Total Bilirubin 0.6 (0.1-1.5) mg/dL AST 19 (5-40) IU/L ALT 14 (8-54) IU/L Alkaline Phosphatase 42 (40-150) Total Protein 7.2 (6.0-8.0) g/dL Albumin 3.8 (3.5-5.0) g/dL Globulin 3.4 (2.0-3.5) g/dL Albumin/Globulin Ratio 1.1 L (1.3-2.8) Meds: Medications Discontinued Medications Generic Name Dose Route Start Last Admin Trade Name Wesleyq PRN Reason Stop Dose Admin Fentanyl 50 mcg 10/29/16 14:45 10/29/16 15:05 Sublimaze IVPUSH 10/29/16 14:46 50 mcg ONETIME ONE Administration Hydromorphone HCl 1 mg 10/29/16 15:35 10/29/16 15:55 Dilaudid IVPUSH 10/29/16 15:36 1 mg ONETIME ONE Administration Sodium Chloride 1,000 mls @ 999 mls/hr 10/29/16 14:45 10/29/16 15:09 Normal Saline IV 10/29/16 15:45 999 mls/hr STAT ONE Administration Prochlorperazine Edisylate 10 52 mls @ 150 mls/hr 10/29/16 14:46 10/29/16 15: 25 mg/ Sodium Chloride IV 10/29/16 15:06 150 mls/hr ONETIME ONE Administration Lorazepam 1 mg 10/29/16 16:25 10/29/16 17:08 Ativan IVPUSH 10/29/16 16:26 1 mg ONETIME ONE Administration Ondansetron HCl 8 mg 10/29/16 14:45 10/29/16 15:02 Zofran IVPUSH 10/29/16 14:46 8 mg ONETIME ONE Administration Departure - Departure Time of Disposition: 17:20 Disposition: Home, Self-Care 01 Condition: good Clinical Impression: Abdominal pain, Nausea Prescriptions: Ondansetron [Zofran ODT] 4 mg PO Q4H #30 tab.dis Prochlorperazine [Compazine] 10 mg PO Q8H #30 tablet Promethazine HCl [Phenergan] 50 mg RC TID PRN #30 supp.rect PRN Reason: Nausea Instructions: Abdominal Pain, Adult, [id number], Pain Medicine Instructions, [id number], Nausea and Vomiting, Adult, [id number] Forms: ED Department Discharge Additional Instructions: The following information is given to patients seen in the emergency department who are being discharged to home. This information is to outline your options for follow-up care. We provide all patients seen in our emergency department with a follow-up referral. The need for follow-up, as well as the timing and circumstances, are variable depending upon the specifics of your emergency department visit. If you don't have a primary care physician on staff, we will provide you with a referral. We always advise you to contact your personal physician following an emergency department visit to inform them of the circumstance of the visit and for follow-up with them and/or the need for any referrals to a consulting specialist. The emergency department will also refer you to a specialist when appropriate. This referral assures that you have the opportunity for follow-up care with a specialist. All of these measure are taken in an effort to provide you with optimal care, which includes your follow-up. Under all circumstances we always encourage you to contact your private physician who remains a resource for coordinating your care. When calling for follow-up care, please make the office aware that this follow-up is from your recent emergency room visit. If for any reason you are refused follow-up, please contact the [facility] Emergency Department at and asked to speak to the emergency department charge nurse. Several different anti-emetics so patient can approach nausea multipronged approach as discussed RC been given Timentin anxiety medicine to use as needed Followup with primary care provider in one to 2 days return ED as needed as discussed
[2016-10-29 15:21] LABS: CHLORIDE,CL 106 mmol/L (98-110); SODIUM,NA 136 mmol/L (136-146)
[2016-10-29] MEDS ORDERED: HYDROmorphone 2 MG/ML Syringe IVPUSH ONE (15:35)
[2016-10-29] MEDS ORDERED: LORazepam 2 MG/ML MDV IVPUSH ONE (16:25)
[2016-10-29 17:45] VITALS: BP 110/72
== END 2016-10-29 17:35 | disposition home or self-care (01) ==
LOC: MW.ED 14:17
DX: R11.0 Nausea (principal); R10.9 Unspecified abdominal pain; F41.9 Anxiety disorder, unspecified; Z90.710 Acquired absence of both cervix and uterus; Z98.890 Other specified postprocedural states; Z85.42 Personal history of malignant neoplasm of other parts of uterus; Z88.6 Allergy status to analgesic agent
CPT/HCPCS: 36415; 80053; 85025; 96365; 96375; 99283; J0780; J1170; J2060; J2405; J3010; J7040; J7050; 99284